=== PATIENT | female | born 2000 | race Caucasian/White ===

== ENCOUNTER 2021-06-16 16:48 | Emergency (ER) | payer SELFPAY ==
[~2021-06-16] VITALS: Ht 162.6 cm; Wt 54.5 kg
[2021-06-16 17:40] VITALS: BP 128/64; PULSE 74; TEMP 98.1
== END 2021-06-16 17:40 | disposition home or self-care (01) ==
LOC: COL.ER 16:48
DX: S09.90XA Unspecified injury of head, initial encounter (principal); V43.52XA Car driver injured in collision with other type car in traffic accident, initial encounter